=== PATIENT | male | born 1940 | race African-American/Black ===

== ENCOUNTER 2016-10-30 12:36 | Inpatient (IN) | payer MEDICARE, OTHER ==
[~2016-10-30] VITALS: Ht 175.3 cm; Wt 84.9 kg
[~2016-10-30 12:36] MED LIST: ADULT LOW DOSE81 MG PO; BRILINTA90 MG PO; ETODOLAC500 MG PO; INVOKANA100 MG PO; LEVEMIR FL100 UNIT/1 SQ; LISINOPRIL-HCT1 EAC1 PO; LOPRESSOR 25 MG25 MG PO; NITROGLYCERIN4.9 GM TL; NITROSTAT0.4 MG SL; NORVASC 5 MG TAB5 MG PO; PLAVIX 75 MG TA75 MG PO; ZOCOR20 MG PO
[2016-10-30 15:47] LABS: HEMOGLOBIN 9.4 gm/dl (14.0-17.5); RED BLOOD COUNT 4.1 M/UL (4.20-5.50); WHITE BLOOD COUNT 11.9 K/UL (4.5-11.0)
[2016-10-30 16:09] LABS: BUN/CREATININE RATIO 14 (0-10)
[2016-10-30] MEDS ORDERED: TUSSIN DM SYRU PO (23:40)
[2016-10-30] MEDS ORDERED: ZESTRIL/PRINIVI10 MG PO (23:40)
[2016-10-30] MEDS ORDERED: NORVASC10 MG PO (23:41)
[2016-10-30] MEDS ORDERED: VITAMIN B-121000 MC3 PO (23:43)
[2016-10-30] MEDS ORDERED: VITAMIN D-32000 UNIT PO (23:45)
[2016-11-01 06:17] LABS: HEMOGLOBIN 8.8 gm/dl (14.0-17.5); RED BLOOD COUNT 3.88 M/UL (4.20-5.50); WHITE BLOOD COUNT 12.5 K/UL (4.5-11.0)
[2016-11-01 06:34] LABS: BUN/CREATININE RATIO 14 (0-10)
[2016-11-02 05:50] LABS: HEMOGLOBIN 7.9 gm/dl (14.0-17.5); WHITE BLOOD COUNT 11.7 K/UL (4.5-11.0)
[2016-11-02 05:56] LABS: RED BLOOD COUNT 3.45 M/UL (4.20-5.50)
[2016-11-02 06:13] LABS: BUN/CREATININE RATIO 11 (0-10)
[2016-11-03 03:47] LABS: WHITE BLOOD COUNT 12.3 K/UL (4.5-11.0)
[2016-11-03 03:48] LABS: HEMOGLOBIN 10.1 gm/dl (14.0-17.5); RED BLOOD COUNT 4.22 M/UL (4.20-5.50)
[2016-11-03 04:00] LABS: BUN/CREATININE RATIO 9 (0-10)
--- NOTE | 2016-11-03 17:46 | NUR ---
REPORTED TO DR. ROBLES OF PATIENT COUGHING OUT SPUTUM WITH SCANT AMOUNT OF BLOOD NOTED- DR. ROBLES ACKNOWLEDGED
[2016-11-04 05:08] LABS: RED BLOOD COUNT 4.56 M/UL (4.20-5.50)
[2016-11-04 05:22] LABS: BUN/CREATININE RATIO 13 (0-10)
[2016-11-04 05:25] LABS: WHITE BLOOD COUNT 15.4 K/UL (4.5-11.0)
[2016-11-05] MEDS ORDERED: AUGMENTIN TAB875 MG PO (12:37)
[2016-11-05] MEDS ORDERED: ZOCOR40 MG PO (12:38)
[2016-11-05] MEDS ORDERED: FERROUS SULFAT325 M2 PO (12:41)
[2016-11-05] MEDS ORDERED: COREG 25MG TAB25 MG PO (12:47)
--- NOTE | 2016-11-05 19:13 | NUR ---
11/04/161914 PATIENT VERBALIZED THAT HE PREFERS BEING DISCHARGED IN THE MORNING, NOT TONIGHT. DR MURO MADE AWARE BY PHILL ARORA.
== END 2016-11-05 11:24 | disposition home health service (06) | DRG 189 ==
LOC: ER1 12:36 → MED SURG 4 20:25 → ZEROF 20:25 → MED SURG 4 23:13
PROVIDERS: Internal Medicine; Specialist/Technologist Athletic Trainer; ADMIT Internal Medicine
PROC: 30233N1 Transfusion of Nonautologous Red Blood Cells into Peripheral Vein, Percutaneous Approach (ICD-10-PCS; 2016-11-02)
PROC: 0BB48ZX Excision of Right Upper Lobe Bronchus, Via Natural or Artificial Opening Endoscopic, Diagnostic (ICD-10-PCS; principal; 2016-11-03)
DX: J96.01 Acute respiratory failure with hypoxia (principal); J18.9 Pneumonia, unspecified organism; C34.90 Malignant neoplasm of unspecified part of unspecified bronchus or lung; J44.1 Chronic obstructive pulmonary disease with (acute) exacerbation; I47.2 Ventricular tachycardia; K92.2 Gastrointestinal hemorrhage, unspecified; F17.210 Nicotine dependence, cigarettes, uncomplicated; E11.9 Type 2 diabetes mellitus without complications; D50.9 Iron deficiency anemia, unspecified; R19.5 Other fecal abnormalities; I10 Essential (primary) hypertension; I25.10 Atherosclerotic heart disease of native coronary artery without angina pectoris; Z95.5 Presence of coronary angioplasty implant and graft; E78.5 Hyperlipidemia, unspecified; Z98.890 Other specified postprocedural states; Z82.49 Family history of ischemic heart disease and other diseases of the circulatory system; Z79.899 Other long term (current) drug therapy; Z79.4 Long term (current) use of insulin
CPT/HCPCS: ECHO; 36415; 36600; 71010; 71020; 71260; 80048; 80053; 80202; 82272; 82550; 82553; 82728; 82803; 82962; 83540; 83550; 83605; 83735; 83874; 83880; 84466; 84484; 85025; 85027; 86850; 86900; 86901; 86920; 87040; 87070; 87205; 88341; 88342; 93005; 93306; 94640; 94664; 96372; 99285; G0008; J1650; J1956; J2250; J2543; J3010; J3370; J7030; J7040; J7050; J7070; P9016; Q2039; Q9962

== ENCOUNTER 2016-11-07 10:20 | Inpatient (IN) | payer MEDICARE, OTHER ==
[~2016-11-07] VITALS: Ht 175.3 cm; Wt 85.3 kg
[~2016-11-07 10:20] MED LIST changes: +AUGMENTIN TAB875 MG PO; +COREG 25MG TAB25 MG PO; +FERROUS SULFAT325 M2 PO; +NORVASC10 MG PO; +TUSSIN DM SYRU PO; +VITAMIN B-121000 MC3 PO; +VITAMIN D-32000 UNIT PO; +ZESTRIL/PRINIVI10 MG PO; +ZOCOR40 MG PO
[2016-11-07 11:33] LABS: HEMOGLOBIN 9.7 gm/dl (14.0-17.5); RED BLOOD COUNT 4.04 M/UL (4.20-5.50); WHITE BLOOD COUNT 12.3 K/UL (4.5-11.0)
[2016-11-07 11:54] LABS: BUN/CREATININE RATIO 16 (0-10)
[2016-11-07] MEDS ORDERED: NORVASC 5 MG TAB5 MG PO (20:34)
[2016-11-07] MEDS ORDERED: TESSALON PERLE100 MG PO (20:35)
[2016-11-07] MEDS ORDERED: VITAMIN D2000 UNI1 PO (20:36)
[2016-11-07] MEDS ORDERED: LIPITOR TAB 2020 MG PO (21:33)
[2016-11-07] MEDS ORDERED: INVOKANA300 MG PO (21:34)
[2016-11-08 04:30] LABS: HEMOGLOBIN 9.7 gm/dl (14.0-17.5); RED BLOOD COUNT 4.04 M/UL (4.20-5.50); WHITE BLOOD COUNT 14.1 K/UL (4.5-11.0)
[2016-11-08 04:46] LABS: BUN/CREATININE RATIO 21 (0-10)
[2016-11-08] MEDS ORDERED: ROBITUSSIN200 MG/10 PO (19:55)
[2016-11-08] MEDS ORDERED: GUAIFENESIN200 MG PO (20:01)
[2016-11-08] MEDS ORDERED: AUGMENTIN PO (20:06)
[2016-11-08] MEDS ORDERED: COUGHTAB200 MG PO (20:09)
== END 2016-11-08 21:15 | disposition home or self-care (01) | DRG 180 ==
LOC: ER1 10:20 → PROG CARE 17:58 → ZEROF 17:58 → PROG CARE 18:58
PROVIDERS: Physician Assistant; ADMIT Family Medicine
DX: C34.11 Malignant neoplasm of upper lobe, right bronchus or lung (principal); J18.9 Pneumonia, unspecified organism; J96.21 Acute and chronic respiratory failure with hypoxia; J91.0 Malignant pleural effusion; C77.1 Secondary and unspecified malignant neoplasm of intrathoracic lymph nodes; I25.10 Atherosclerotic heart disease of native coronary artery without angina pectoris; E11.9 Type 2 diabetes mellitus without complications; I10 Essential (primary) hypertension; E78.5 Hyperlipidemia, unspecified; F17.200 Nicotine dependence, unspecified, uncomplicated; Z95.5 Presence of coronary angioplasty implant and graft; Z79.4 Long term (current) use of insulin; Z79.82 Long term (current) use of aspirin; Z79.899 Other long term (current) drug therapy; Z86.010 Personal history of colon polyps; Z98.890 Other specified postprocedural states; Z82.49 Family history of ischemic heart disease and other diseases of the circulatory system
CPT/HCPCS: 36415; 36600; 70450; 71010; 71020; 80048; 80053; 82803; 82962; 84484; 85025; 87040; 87070; 87205; 93005; 94640; 94664; 96365; 96366; 96367; 96375; 99285; J0456; J1650; J2543; J3370; J7030; J7050; J7070; Q9963